=== PATIENT | male | born 1990 | race Two or more races ===

== ENCOUNTER 2017-10-18 10:45 | Emergency (ER) | payer MEDICAID ==
[~2017-10-18] VITALS: Ht 193 cm; Wt 90.7 kg
--- NOTE | 2017-10-18 11:32 | NUR ---
CALLED ULTRASOUND DIRECT EXTENSION NUMBER WITH NO ANSWER.
--- NOTE | 2017-10-18 11:50 | NUR ---
US AT BS.
[2017-10-18] MEDS: RIVAROXABAN 15 MG TABLET PO SCH (14:02)
[2017-10-18 14:09] VITALS: BP 128/77
== END 2017-10-18 14:10 | disposition home or self-care (01) ==
LOC: ER 10:47
DX: I82.411 Acute embolism and thrombosis of right femoral vein (principal)
CPT/HCPCS: 93971-TC; A4606; Z7610

== ENCOUNTER 2019-05-27 09:42 | Emergency (ER) | payer SELFPAY ==
[~2019-05-27] VITALS: Ht 190.5 cm; Wt 97.1 kg
[2019-05-27 11:23] LABS: APPEARANCE,URINE Clear (CLEAR); BILIRUBIN,URINE Negative (NEGATIVE); BLOOD, URINE Negative Ery/uL (NEGATIVE); COLOR,URINE Yellow (YELLOW); KETONES,URINE Negative (NEGATIVE); LEUKOCYTE ESTERASE ,URINE Negative (NEGATIVE); NITRITE, URINE Negative (NEGATIVE); PH,URINE 5.5 (5.0-8.0); PROTEIN,URINE 30 mg/dl (NEGATIVE); UGLUCOSE Negative (NEGATIVE); UROBILINOGEN,URINE 0.2 EU/dL (0.2)
[2019-05-27 11:29] LABS: BACTERIA,URINE Rare /HPF (None Seen); RBC,URINE NONE SEEN /HPF (0-2); SQUAMOUS EPITHELIAL CELL,UR Few /HPF (None Seen); WBC,URINE NONE SEEN /HPF (0-3)
[2019-05-27] MEDS ORDERED: IBUPROFEN 400 MG TABLET PO ONE (11:30)
[2019-05-27] MEDS ORDERED: IBUPROFEN 400 MG TABLET ONE (11:36)
--- NOTE | 2019-05-27 12:26 | NUR ---
Pt awaiting CT results/update and disposition appears comfortable states pain"tolerable". NO obvious distress. NKE/Report to RN Isaias
--- NOTE | 2019-05-27 13:03 | NUR ---
Patient discharged to home in stable condition. Written and verbal after care instructions given. Patient verbalizes understanding of instruction.
[2019-05-27 13:05] VITALS: BP 122/66
== END 2019-05-27 13:06 | disposition home or self-care (01) ==
LOC: ER 09:45
DX: J18.9 Pneumonia, unspecified organism (principal)
CPT/HCPCS: 81000-TC